=== PATIENT | male | born 1990 ===

== ENCOUNTER → 2018-10-24 | Outpatient (REF) | payer OTHER ==
[2018-10-24 23:15] LABS: CHLAMYDIA DNA AMPLIFICATION NEGATIVE (NEGATIVE); GC DNA AMPLIFICATION NEGATIVE (NEGATIVE)
== END ==
LOC: M LAB REF 15:37
PROVIDERS: ATTEND Physician Assistant Medical
DX: Z11.3 Encounter for screening for infections with a predominantly sexual mode of transmission (principal)